=== PATIENT | male | born 1935 | race Caucasian/White ===

== ENCOUNTER 2018-05-16 09:37 | Day surgery (SDC) | payer OTHER, BC ==
[2018-05-16] MEDS ORDERED: FAMOTIDINE 20 MG TAB PO ONE (09:40)
[2018-05-16] MEDS ORDERED: NS 1,000 ML IV ONE (09:40)
[2018-05-16] MEDS ORDERED: diphenhydrAMINE 25 MG CAP PO ONE (09:40)
[2018-05-16] MEDS ORDERED: ASPIRIN EC 325 MG TAB PO ONE (09:40)
[2018-05-16] MEDS ORDERED: DIAZEPAM 5 MG TAB PO ONE (09:40)
[2018-05-16 10:25] LABS: PLATELET COUNT 268 10^3/uL (150-400)
[2018-05-16 10:39] LABS: INR 1.06 (0.83-1.16); PROTIME(PATIENT) 13.4 SEC (12.0-15.0)
--- NOTE | 2018-05-16 11:26 | PDHPUP ---
History & Physical Update H&P update statement: This history and physical update is based on an assessment of the patient which was completed after admission or registration (within 24 hours), but prior to the surgery/procedure. H&P update: H&P reviewed & patient examined, no change in patient's condition since H&P completed
--- NOTE | 2018-05-16 11:33 | PDPROPOC ---
Sedation Plan of Care Sedation Plan of Care: vital signs stable, mental status noted, patient educated of risks, benefits, alternatives, patient can tolerate sedation ASA Classification: ASA 1 Planned drugs: fentanyl, midazolam Mallampati Score: Class 1 Mallampati Reference Image: Patient passed 3-3-2 rule?: Yes
[2018-05-16] MEDS ORDERED: fentaNYL 100 MCG/2 ML INJ ONE (11:45)
[2018-05-16] MEDS ORDERED: LIDOCAINE 1% 300 MG/30 ML SDV ONE (11:45)
[2018-05-16] MEDS ORDERED: IOPAMIDOL (ISOVUE-370) 150 ML BTL IV ONE (11:46)
[2018-05-16] MEDS ORDERED: MIDAZOLAM 2 MG/2 ML VIAL ONE (11:46)
[2018-05-16] MEDS ORDERED: HEPARIN 10,000 UNIT/10 ML MDV (1,000 UNIT/ML) ONE (11:47)
[2018-05-16] MEDS ORDERED: VERAPAMIL 5 MG/2 ML VIAL ONE (11:47)
[2018-05-16] MEDS ORDERED: OXYCODONE/APAP 5/325 TAB PO PRN (12:47)
[2018-05-16] MEDS ORDERED: NITROGLYCERIN 0.4 MG BTL SL PRN (12:47)
[2018-05-16] MEDS ORDERED: ATROPINE SULFATE 1 MG/10 ML SYR IVP PRN (12:47)
[2018-05-16] MEDS ORDERED: ONDANSETRON 4 MG/2 ML VIAL IVP PRN (12:47)
[2018-05-16] MEDS ORDERED: HYDROCODONE/APAP 5/325 TAB PO PRN (12:47)
--- NOTE | 2018-05-16 15:28 | ECHO ---
[email or web address] [address] [address] Main: [phone] Fax: Transthoracic Echocardiogram Name: SAMSON ROWLAND MR#: [id number] Study Date: 05/16/2018 Study Time: 01:41 PM Date of : 1935 Age: 82 year(s) Height: 172.7 cm (68 in.) Weight: 77.57 kg (171 lb.) BSA: 1.91 m2 Gender: Male Examination: ECH Indication: Dyspnea on exertion Image Quality: Adequate Contrast: Requested by: Nayan Soto BP: 142 mmHg/86 mmHg Heart Rate: Rhythm: Indication: Dyspnea on exertion Procedure Staff Orthodontist Small Business Owner: Adriana Michael RDCS Reading Physician: Nayan Soto MD Requesting Provider: Conclusions: Normal size left ventricle. Mild concentric LV hypertrophy. Normal global systolic LV function. EF is 72 %. No regional wall motion abnormality. Normal diastolic LV function. Mild mitral valve regurgitation is present. Mild tricuspid regurgitation is present. The pulmonary artery pressure is normal. Right ventricular systolic pressure measures 23mmHg. Small pericardial effusion. There are no significant valvular abnormalities. Measurements: Chambers Valvular Assessment AV/MV Valvular Assessment TV/PV Normal Normal Normal Name Value Range Name Value Range Name Value Range Ao Edith (2D): 3.3 cm (1.4 cm-2.6 AV Vmax: 1.19 m/s (1 m/s-1.7 TR Vmax: 2.14 mm/s ( - ) cm) m/s) TR PGmax: 18 mmHg ( - ) IVSd (2D): 1.4 cm (0.6 cm-1.1 AV maxP mmHg ( - ) syst. PAP: 23 mmHg ( - ) cm) AV meanP mmHg ( - ) PV Vmax: 0.81 m/s (0.6 m/s-0.9 LVDd (2D): 3.4 cm (4.2 cm-5.9 CHANDU (VTI): 1.9 cm ( - ) m/s) cm) MV E Vmax: 0.48 m/s ( - ) PV PGmax: 3 mmHg ( - ) LVDs (2D): 2.3 cm (2.1 cm-4 MV A Vmax: 0.61 m/s ( - ) cm) MV E/A: 0.79 ( - ) LVPWd (2D): 1.3 cm (0.6 cm-1 cm) MV PHT: 0.110 s ( - ) LVOTd 2.1 cm 2.1 cm mm MVA (PHT): 2.0 s ( - ) LVEF (MOD4): 72 % (>=55 %) Patient: SAMSON ROWLAND Study Date: 05/16/2018 Page 1 of 2 01:41 PM Continued Measurements: Chambers Valvular Assessment AV/MV Valvular Assessment TV/PV Name Value Name Value Name Value LADs: 3.0 cm MV DecTime: 363 m/s CVP (est.): 5 mmHg LADs Lon.4 cm MV E' Septal: 0.07 m/s LA Area: 13.4 cm2 MV E/E' Septal: 6.60 LA Volume: 36 ml MV E/E' Lateral: 6.80 LA Volume Index: 18.8 ml/m2 Additional Vessels Name Value Inferior Vena Cava: 1.7 cm Findings: Left Ventricle: Normal size left ventricle. Mild concentric LV hypertrophy. Normal global systolic LV function. EF is 72 %. No regional wall motion abnormality. Normal diastolic LV function. Right Ventricle: Normal size right ventricle. Normal RV function. Left Atrium: The left atrium is normal in size. Right Atrium: The right atrium is normal in size. Mitral Valve: The mitral valve is normal in appearance and function. Mild mitral valve regurgitation is present. No mitral stenosis is present. Aortic Valve: The aortic valve is tri-leaflet. Aortic sclerosis is present. There is no significant aortic valve regurgitation. No aortic valve stenosis is present. Tricuspid Valve: The tricuspid valve is normal in appearance and function. Mild tricuspid regurgitation is present. The pulmonary artery pressure is normal. Right ventricular systolic pressure measures 23mmHg. Pulmonic Valve: Pulmonary valve not well visualized. Aorta: The aorta is normal. Normal size aortic root measuring 3.3 cm. IVC: The IVC is normal sized. Pericardium: Small pericardial effusion. Exam Comments: Supine post cath. (No Signature Object) Patient: SAMSON ROWLAND Study Date: 05/16/2018 Page 2 of 2 01:41 PM [id number]
--- NOTE | 2018-05-16 17:28 | PDDXCAT ---
Diagnostic Cath Note - . Date: 05/16/18 Incident Response Lead: Charles Indication: CCC Class III and IV angina on medical treatment - Procedure Access: right wrist Procedure: left heart catheterization, coronary angiography, left ventriculogram - Materials Left Heart Cath size: 5F Left Heart Cath materials: JL3.5, JR4.0, pigtail - Findings-Left Heart Catheterization LM: Moderate caliber. Bifurcates into the left anterior descending and circumflex distributions. Luminal irregularities with no obstruction. LAD: Large caliber vessel. 2 diagonal branches are identified. Diffuse luminal irregularities with no obstructive lesions. LCX: Large caliber vessel. Single large bifurcating obtuse marginal branch. Luminal irregularities with no obstruction. RCA: Large caliber vessel. Dominant. The PDA and a large posterolateral branch are identified. Diffuse luminal irregularities with no obstructive lesions. LVEF: 60%. Wall motion: Normal. Complications: None. Estimated blood loss: <50ml Closure method: TR Band Assessment: 1. Diffuse nonobstructive epicardial coronary disease. 2. Preserved left ventricular systolic function with normal wall motion. Plan: Patient will be managed medically. He will be worked up for an alternate etiology to his symptoms of dyspnea. Intervention: None.
--- NOTE | 2018-05-18 12:18 | CPEKG ---
Test Reason : OPEN Blood Pressure : / mmHG Vent. Rate : 065 BPM Atrial Rate : 068 BPM P-R Int : 188 ms QRS Dur : 084 ms QT Int : 400 ms P-R-T Axes : 005 -39 080 degrees QTc Int : 416 ms Sinus rhythm Left axis deviation Abnormal R-wave progression, early transition Confirmed by Javon Frank ([id number]) on 05/18/2018 12:18:11 PM Referred By: Nayan Soto Confirmed By:Javon Frank
== END 2018-05-16 16:00 | disposition home or self-care (01) ==
LOC: FCATH 09:37
PROVIDERS: ATTEND Internal Medicine Cardiovascular Disease
DX: I25.119 Atherosclerotic heart disease of native coronary artery with unspecified angina pectoris (principal); E78.5 Hyperlipidemia, unspecified; J45.909 Unspecified asthma, uncomplicated
CPT/HCPCS: J1644; J2250; J3010; Q9967